=== PATIENT | female | born 1995 | race Caucasian/White ===

== ENCOUNTER 2023-05-30 07:07 | Outpatient (CLI) | payer BC, SELFPAY ==
--- NOTE | 2023-05-30 07:15 | CRLHL7_ITS ---
For Patients: As a result of the Cures Act, medical imaging exams and procedure reports are released immediately into your electronic medical record. You may view this report before your referring provider. If you have questions, please contact your health care provider. INDICATION: First trimester scan, establish dates. COMPARISON: None. TECHNIQUE: Real-time gutierrez-scale imaging of the pelvis was performed. FINDINGS: Sonographic imaging demonstrates a single living intrauterine gestation. The embryo demonstrates a regular cardiac rate measuring 180 beats per minute. The embryo`s crown-rump length measurement of 2.1 cm corresponds to a gestational age of 8 weeks 5 days with a sonographic due date of January 04, 2024. There is a normal-appearing yolk sac measuring up to 3.5 mm in diameter. There are no gross abnormalities noted within the embryo at this early state of development. The placenta has not yet developed. The gestational sac has a normal appearance and there is no evidence of a perigestational hemorrhage. The amount of fluid within the sac appears appropriate for gestational age. The cervix is closed. The myometrium appears normal. The ovaries are of normal size. The right ovary measures 2.6 x 1.2 x 2.1 cm. The left ovary measures 3.8 x 1.9 x 3.0 cm. Small corpus luteum cyst of on the left. There are no suspicious fluid collections noted in the cul-de-sac. IMPRESSION: Normal first trimester OB ultrasound exam. Gestational age calculated at 8 weeks 5 days with a sonographic due date of January 04, 2024. Dictated by Michael Taylor MD @ 05/30/2023 8:30:13 AM (Electronically Signed)
== END 2023-05-30 07:08 | disposition home or self-care (01) ==
PROVIDERS: Visit Provider Advanced Practice Midwife
DX: Z34.91 Encounter for supervision of normal pregnancy, unspecified, first trimester (principal); Z3A.08 8 weeks gestation of pregnancy
CPT/HCPCS: 76817; 86703; 86706; 86803; 86850; 86900; 86901; 87086; 87340

== ENCOUNTER 2023-05-30 09:20 | Outpatient (CLI) | payer BC, SELFPAY | END 2023-05-30 09:21 | disposition home or self-care (01) | LOC: NFLDREF 06-01 08:41 | PROVIDERS: Visit Provider Advanced Practice Midwife | DX: Z34.91 Encounter for supervision of normal pregnancy, unspecified, first trimester (principal); Z3A.08 8 weeks gestation of pregnancy | CPT/HCPCS: 86592; 86703; 86704; 86706; 86762; 86787; 86803; 86850; 86900; 86901; 87086; 87340 ==

== ENCOUNTER 2023-08-22 08:13 | Outpatient (CLI) | payer OTHER, SELFPAY ==
--- NOTE | 2023-08-22 08:15 | US_ITS ---
Patient: AVELINO SU Facility:?[facility] Patient ID:?[id number] Site Patient ID:?[id number]. Site :?[id number] Study:?US-OB Pelvis OB > 14wks-08/22/2023 10:17:04 AM Ordering Physician:Faith Bella Final Report: INDICATION: Evaluate anatomy. COMPARISON: 05/30/2023 TECHNIQUE: Real time gutierrez scale imaging of the fetus was performed as well as color Doppler analysis of the umbilical vessels. FINDINGS: Sonographic imaging demonstrates a single living intrauterine gestation. Fetus demonstrates a regular cardiac rate of 144 beats per minute. Fetus has a transverse position, head maternal right. The placenta lies posteriorly without evidence of placenta previa. Placental edge is 3.7 cm from the internal cervical os. Amniotic fluid volume appears normal. Single deepest vertical pocket: 3.2 cm. The cervix is closed and measures 5.4 cm in length. The composite ultrasound gestational age is calculated at 20 weeks 5 days with an estimated sonographic due date of 01/04/2024. The estimated weight is 373 grams which lies at the 45th %. The following biometric measurements were obtained: Biparietal diameter: 4.9 cm/20 weeks 5 days 51st% Head circumference: 18.1 cm/20 weeks 3 days 31st% Abdominal circumference: 15.5 cm/20 weeks 5 day 43rd% Femur length: 3.4 cm/20 weeks 6 days 44th% The HC/AC ratio measures: 1.16 range (1.06-1.25) On anatomic survey, there is a normal appearance of the cavum septi pellucidi, cisterna magna and cerebellum. Choroid plexus cysts measuring 1.2 cm and 0.9 cm. The nose, lips, and facial profile appear normal. The cervical, thoracic and lumbar spine are well visualized and appear normal. There is a normal four- chamber heart view and the left and right ventricular outflow tracts appear normal. The diaphragm and stomach appear normal. The kidneys and bladder also appear normal. There is a normal three-vessel cord and cord insertion site. The four extremities appear normal. IMPRESSION: Concordance of clinical and sonographic dating. Choroid plexus cysts. Remainder of the anatomic survey is normal. Level 2 ultrasound recommended. Dictated by Sadi Cevallos MD @ 08/22/2023 12:22:04 PM Signed by:?Sadi Cevallos MD @08/22/2023 12:22:04 PM (Electronic Signature)
== END 2023-08-22 08:14 | disposition home or self-care (01) ==
LOC: US 08:18
PROVIDERS: Visit Provider Obstetrics & Gynecology
DX: Z34.92 Encounter for supervision of normal pregnancy, unspecified, second trimester (principal); O35.03X0 Maternal care for (suspected) central nervous system malformation or damage in fetus, choroid plexus cysts, not applicable or unspecified; Z3A.20 20 weeks gestation of pregnancy
CPT/HCPCS: 76805

== ENCOUNTER 2023-10-17 08:50 | Outpatient (CLI) | payer OTHER, SELFPAY | END 2023-10-17 08:51 | disposition home or self-care (01) | LOC: NFLDREF 10-19 09:06 | PROVIDERS: Visit Provider Obstetrics & Gynecology | DX: Z34.03 Encounter for supervision of normal first pregnancy, third trimester (principal) | CPT/HCPCS: 86592 ==

== ENCOUNTER 2023-11-28 09:41 | Outpatient (CLI) | payer OTHER, SELFPAY | END 2023-11-28 09:42 | disposition home or self-care (01) | PROVIDERS: Visit Provider Obstetrics & Gynecology | DX: O16.3 Unspecified maternal hypertension, third trimester (principal); Z3A.34 34 weeks gestation of pregnancy | CPT/HCPCS: 82565; 82570; 84156; 84450; 84460; 84520 ==

== ENCOUNTER 2023-12-05 09:29 | Outpatient (CLI) | payer OTHER, SELFPAY ==
[2023-12-06 11:19] LABS: Strep B DNA Probe Negative (Negative)
[2023-12-06 11:20] LABS: Strep B Susceptibility Needed? No
== END 2023-12-05 09:30 | disposition home or self-care (01) ==
LOC: NFLDREF 09:29
PROVIDERS: Visit Provider Obstetrics & Gynecology
DX: Z34.93 Encounter for supervision of normal pregnancy, unspecified, third trimester (principal)
CPT/HCPCS: 87081; 87653

== ENCOUNTER 2024-01-10 16:15 | Inpatient (IN) | payer OTHER, SELFPAY ==
[2024-01-10 16:46] VITALS: BMI 33.3
[2024-01-10 16:50] VITALS: BP 144/88; PULSE 98
[2024-01-10 17:02] VITALS: BP 141/85; PULSE 103; TEMP 36.7
--- NOTE | 2024-01-10 18:21 | W.PM.LDBA ---
Subjective History of Present Illness Time Seen by Provider: 15:45 Date Seen: 01/10/24 Narrative: Patient is being admitted to Labor and Delivery for scheduled IOL. She is a 28 year old at 40.6 weeks gestation. Her full history and physical was dictated by myself on 12/12/23. Please see this for details. Upon arrival, her BPs were elevated [id number]. She rules in for at least gestational hypertension in given that she has had an elevated blood pressure at a previous clinic visit. Will send preeclampsia labs. Denies any persistent headache, vision changes, SOB, right upper quadrant/epigastric pain, or rapidly expanding edema. Active movement. Denies Ctx, LOF, vaginal bleeding or abnormal vaginal discharge. Specific Issues/Plans NATALIIA: 01/04/24 : Elliott Hough due PP. 1. Hx asthma. Inhaler only with exercise. 2. Anxiety. Not currently on medication. 3. Bilateral choroid plexus cysts on FAS (08/21) [x] NIPT low risk [x] s/p MFM visit and level 2 US, no further workup recommended 4. Elevated BP without HTN - elevated BP in clinic on 11/27, normal preE labs Flu vaccine:declines Covid Vaccine:declines TDAP: 10/31/23 OB - Problem Based A/P Additional Plan (1) Gestational hypertension: Status: Acute (2) Choroid plexus cyst of fetus: Problem details: Bilateral Status: Acute (3) : Status: Acute (4) Anxiety: Status: Acute (5) Asthma: Problem details: inhaler with exercise Status: Acute Plan Induction - SVE 150/-3, moderately soft, posterior - [place] Irregular contractions - IOL plan: Cook cath - 60cc/60cc. Placed at 1745. Patient tolerated will minimal discomfort. Low dose Pitocin at midnight - Continuous monitoring - Pain management plan: Undecided. r/o Pre-Eclampsia - Based on mild range in blood pressure. Pending protein creatinine ratio - BPs 144/88 and 141/85 - Symptoms: none - Magnesium: currently not indicated - IV antihypertensives: currently not indicated - PO antihypertensive: currently not indicated - Pre-eclampsia labs on 11/28/23: Hgb 11.5 Plt 222 Cr 0.6 Uric ALT 32 AST 19. P/C ratio 0.17 - Pending new pre-e labs Wellbeing Presentation cephalic NST: 130s bpm, moderate variability, positive acceleration, negative decelerations. Overall cat I. OB Exam Physical Exam Vital signs: Temp Pulse BP 98.1 F 103 H 141/85 H 01/10/24 17:02 01/10/24 17:02 01/10/24 17:02 Narrative: Physical exam: General: No acute distress Psych: Alert and oriented x3, full affect HEENT: Normocephalic, atraumatic Lungs: Unlabored breathing Neuro: No focal deficit. Mentating appropriately Pelvic exam: Dry perineum. 1/50/-3, moderately soft, posterior.
[2024-01-10 18:40] LABS: Basophils Absolute Auto 0.03 K/uL (0.00-0.30); Basophils Percent Auto 0.3 % (0.0-3.0); Eosinophils Absolute Auto 0.06 K/uL (0.00-0.50); Eosinophils Percent Auto 0.6 % (0.0-7.0); Hematocrit 34.9 % (33.0-51.0); Hemoglobin* 11.7 gm/dL (12.0-16.0); Immature Granulocytes Abs Auto 0.15 K/uL (0.00-0.30); Immature Granulocytes Pct Auto 1.4 %; Lymphocytes Percent Auto 12.7 % (20-44); Mean Corpuscular HGB Conc 34 gm/dL (32-36); Mean Corpuscular Hemoglobin 28 pg (26-34); Mean Corpuscular Volume 83 fL (80-100); Monocytes Percent Auto 8.1 % (0.0-11.0); Neutrophils Percent Auto 76.9 % (42.0-72.0); Platelet Count* 248 K/uL (140-440); RDW Coefficient of Variation % 13.8 % (11.5-15.5); Red Blood Count 4.19 m/uL (4.00-5.20); White Blood Count* 10.37 K/uL (4.50-11.00)
[2024-01-10 19:10] LABS: Aspartate Amino Transferase* 41 U/L (12-35); Creatinine* 0.6 mg/dL (0.5-1.5); Est. Creatinine Clearance* 143.28; Estimated Glomerular Filt Rate 124 ml/min
[2024-01-10 19:11] LABS: Alanine Aminotransferase* 17 U/L (4-35); Blood Urea Nitrogen* 8 mg/dL (5-24)
[2024-01-10 19:20] VITALS: RESP 18; TEMP 36.4
[2024-01-10 19:21] VITALS: BP 134/89; PULSE 76
[2024-01-10 19:53] LABS: Slide Review Reflex No
[2024-01-10 20:04] LABS: Total Protein Urine 7 mg/dL
[2024-01-10 20:05] LABS: Creatinine Urine 65.5 mg/dL; Protein Creatinine Ratio Urine 0.11 (0-0.19)
[2024-01-10 22:10] VITALS: BP 130/89; PULSE 83
[2024-01-11] VITALS (71 sets, daily range): BP systolic 102–177; BP diastolic 53–94; PULSE 65–130; RESP 16–22; TEMP 36.6–37.2; O2SAT 93–100
[2024-01-11] MEDS: LACTATED RINGERS 1000 ML 1,000 ML 125 ML IV ×3 (00:09→15:17)
[2024-01-11] MEDS: OXYTOCIN 30 unit/500 ML in NS 30 UNIT/500 ML BAG IVPB (00:10)
--- NOTE | 2024-01-11 07:41 | P.OBPN_ITS ---
Subjective Date Seen: 01/11/24 Narrative: The patient did well overnight, was able to sleep some through contractions while the Cook catheter was in place. Currently unaware of contractions. 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
--- NOTE | 2024-01-11 16:25 | P.OBPN_ITS ---
Subjective Time Seen by Provider: 15:50 Date Seen: 01/11/24 Narrative: Patient is still comfortable. Feeling mild/moderate contractions. 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 Continue pitocin infusion.
--- NOTE | 2024-01-11 18:04 | PM.OBPNL ---
Subjective Time Seen by Provider: 18:00 Date Seen: 01/11/24 Narrative: The patient is feeling increased pressure in the pelvis with contractions. Now using nitrous oxide for pain relief. Objective Vital Signs: Last Vital Signs Temp 98.1 F 01/11/24 17:34 Pulse 82 01/11/24 17:34 Resp 20 01/11/24 17:34 BP 124/66 01/11/24 17:34 Pelvic Exam Dilation (cm): 7 Effacement (%): 80 Station: -2 Contractions Monitor mode: External Contraction pattern: Regular Contraction intensity: Strong/Firm Pitocin Rate (mU/min): 13 Assessment Assessment: active labor Station: -2 (OT position) Status: Category ll Heart Rate Baseline: 130 Monitor Accelerations: Absent Monitor Decelerations: Early Plan Plan: Will continue maternal repositioning to affect rotation. Patient requests epidural.
[2024-01-11] MEDS: LIDOCAINE 2% (PF) 5 ML VIAL EPIDURAL (19:02)
[2024-01-11] MEDS: ROPIVACAINE 0.2% 100 ml 100 ML 12 MG EPIDURAL (19:04)
--- NOTE | 2024-01-11 19:14 | PM.ANBPRC ---
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 Feels a little more irritable but declines intervention at this time. NHI: 7 PHQ 9: 4 Seat Belt Use: Routinely Smoking: Denies past/present Alcohol/day: Denies while Caffeine: less than one per day Drug Use: Denies past/present Chicken Pox: immunized MRSA: Denies What is your current living situation?: I presently have a place to live Problems where you live: no known problems In the past 12 months, utilities in danger of being shut off: no In past 12 months, lack of transportation kept you from medical appts, meetings, work, or getting things needed for daily living: no In the past 12 mos, have been you worried that your food would run out before you had money to buy more?: never true In the past 12 mos, the food you bought just didn't last and you didn't have money to buy more?: never true Smoking Status: Never smoker How often does anyone, including family, friends and others, physically hurt you: never How often does anyone, including family, friends and others, insult or talk down to you: never How often does anyone, including family, friends and others, threaten you with harm: never How often does anyone, including family, friends and others, scream or curse at you: never Little interest or pleasure in doing things: not at all Feeling down, depressed, or hopeless: not at all Meds Home Medications and Allergies Home Medications ?Medication ?Instructions ?Recorded ?Confirmed ?Type docosahexaenoic acid 200 mg See Rx Instructions PO .COMPLEX 05/30/23 01/10/24 History capsule ( DHA) omeprazole 20 mg capsule,delayed 20 mg PO QDAY PRN 11/28/23 01/10/24 History release Allergies Allergy/AdvReac Type Severity Reaction Status Date / Time No Known Drug Allergies Allergy Verified 01/10/24 16:49 Results Labs Labs: Laboratory Results - last 24 hr 01/10/24 01/10/24 18:26 18:55 WBC 10.37 RBC 4.19 Hgb 11.7 L Hct 34.9 MCV 83 MCH 28 MCHC 34 RDW Coeff of Brenna 13.8 Plt Count 248 Neut % (Auto) 76.9 H Lymph % (Auto) 12.7 L Churchill % (Auto) 8.1 Eos % (Auto) 0.6 Baso % (Auto) 0.3 Neut # (Auto) 8.00 H Lymph # (Auto) 1.30 Churchill # (Auto) 0.80 Eos # (Auto) 0.06 Baso # (Auto) 0.03 Abs Immat Gran (auto) 0.15 Imm/Tot Granulo (auto) 1.4 BUN 8 Creatinine 0.6 Estimated Creat Clear 143.28 Estimated GFR 124 AST 41 H ALT 17 Urine Creatinine 65.5 Protein/Creatinin Ratio 0.11 Urine Total Protein 7 Blood Type AB Positive Antibody Screen NEGATIVE Vital Signs Vital Signs: Last Vital Signs Temp 98.1 F 01/11/24 17:34 Pulse 86 01/11/24 19:13 Resp 20 01/11/24 17:34 BP 141/75 H 01/11/24 19:13 Pulse Ox 98 01/11/24 19:11 Weight: 102.467 kg Height: 175.26 cm Anesthesia Procedures Epidural Insertion Patient Location: OB Start Time: 18:25 Stop Time: 19:25 Start Date: 01/11/24 Stop Date: 01/11/24 Reason for Block: procedure for pain Patient Position: sitting Performed By: Karie Bell Preanesthetic Checklist: IV checked, risks and benefits discussed, monitors and equipment checked, pre-op evaluation, timeout performed and anesthesia consent Prep: chlorhexidine gluconate Monitoring: blood pressure monitoring, continuous pulse oximetry and heart rate Approach: midline Vertebral Space: lumbar (1-5) Epidural Technique: PORTIA saline Needle Type: Tuohy needle Injection Technique: continuous catheter (continuous catheter) Needle gauge: 17 Needle Length (cm): 10 cm Needle Insertion Depth (cm): 8 Catheter Gauge: 19 Catheter Type: multi-orifice Catheter at skin depth (cm): 15 Test Dose Result: negative and lidocaine 1.5% with epinephrine 1 to 200,000
[2024-01-11 19:39] LABS: Hemoglobin* 11.3 gm/dL (12.0-16.0); Mean Corpuscular HGB Conc 34 gm/dL (32-36); Mean Corpuscular Hemoglobin 29 pg (26-34); Mean Corpuscular Volume 84 fL (80-100); Platelet Count* 224 K/uL (140-440); Red Blood Count 3.95 m/uL (4.00-5.20); White Blood Count* 13.87 K/uL (4.50-11.00)
[2024-01-11 19:44] LABS: Slide Review Reflex No
[2024-01-11 20:05] LABS: Alanine Aminotransferase* 17 U/L (4-35); Aspartate Amino Transferase* 34 U/L (12-35); Blood Urea Nitrogen* 6 mg/dL (5-24); Creatinine* 0.6 mg/dL (0.5-1.5); Est. Creatinine Clearance* 143.28; Estimated Glomerular Filt Rate 124 ml/min; Uric Acid* 3.9 mg/dL (2.2-8.4)
--- NOTE | 2024-01-11 20:19 | PM.OBPNL ---
Subjective Time Seen by Provider: 19:35 Date Seen: 01/11/24 Narrative: Patient comfortable with epidural. Objective Vital Signs: Last Vital Signs Temp 98.1 F 01/11/24 17:34 Pulse 82 01/11/24 20:19 Resp 20 01/11/24 17:34 BP 124/65 01/11/24 20:19 Pulse Ox 98 01/11/24 19:56 Pelvic Exam Dilation (cm): 7 Effacement (%): 90 Station: -1 Contractions Monitor mode: External Contraction pattern: Regular Contraction intensity: Strong/Firm Pitocin Rate (mU/min): 13 Assessment Station: -1 (OT position) Status: Category ll Heart Rate Baseline: 120 [place] Variability: Moderate (6-25) Monitor Accelerations: Absent Monitor Decelerations: None Plan Plan: IUPC and FSC placed. Cervical effacement and station change, dilation unchanged. FHR baseline appears to have changed following epidural placement. Still good variability and accels in response to scalp stimulation with exam. Continue to closely monitor. Monitor mvus and increase pitocin infusion as needed.
--- NOTE | 2024-01-11 21:45 | PM.OBPNL ---
Subjective Time Seen by Provider: 21:45 Date Seen: 01/11/24 Narrative: Patient still comfortable, feeling some pressure with contractions. Objective Vital Signs: Last Vital Signs Temp 98.1 F 01/11/24 17:34 Pulse 99 01/11/24 21:36 Resp 20 01/11/24 17:34 BP 157/94 H 01/11/24 21:36 Pulse Ox 98 01/11/24 19:56 Pelvic Exam Dilation (cm): 8 Effacement (%): 90 Station: 0 Contractions Monitor mode: External Contraction pattern: Regular Contraction intensity: Strong/Firm Pitocin Rate (mU/min): 15 Assessment Station: 0 Amniotic Membrane Status: SROM Status: Category ll Heart Rate Baseline: 120 Monitor Accelerations: Absent Monitor Decelerations: Variable Plan Plan: Contractions not consistently adequate. Continue slow increase in pitocin infusion as tolerated by FHTs. Position change.
[2024-01-11] MEDS: ONDANSETRON 2 MG/ML inj 4 MG IV (22:31)
[2024-01-11] MEDS: LACTATED RINGERS 1000 ML 1,000 ML 1200 ML IV (23:36)
[2024-01-12] VITALS (32 sets, daily range): BP systolic 110–146; BP diastolic 57–84; PULSE 61–120; RESP 12–18; TEMP 36.4–37.1; O2SAT 95–99
[2024-01-12] MEDS: ACETAMINOPHEN 500 MG TABLET 1000 MG PO ×2 (01:15→06:08)
[2024-01-12] MEDS: ROPIVACAINE 0.2% 100 ml 100 ML 12 MG EPIDURAL (02:26)
[2024-01-12] MEDS: LIDOCAINE 1 % PF 30 ML INJECTION (03:06)
--- NOTE | 2024-01-12 03:26 | W.PM.OBVAGDE ---
OB Procedure Vag Delivery Mother Details Mother Details: The patient is a 28 year-old, 1, Para 0, admitted on 01/10/24 at 40 6/7 weeks gestation for cervical ripening and induction of labor secondary to postdates gestation. Cervix 1 cm dilated at the time of admission. Cook catheter placed overnight. Pitocin infusion initiated prior to catheter removal, and continued on 01/11/2024. : 1 Para: 0 Weeks Gestation: 41.1 Admission Date: 01/10/24 Additional Details Amniotic Membrane Status: intact Amniotic Membrane Rupture Date: 01/11/24 Amniotic Membrane Rupture Time: 15:50 Amniotic Membrane Fluid Description: Clear Analgesia/Anesthesia Type: Epidural and Nitrous Oxide Waterbirth: No Pitcoin: Yes Intrapartal Events: Labor Induction Induction Method: Intracervical balloon catheter and per pitocin protocol Delivery augmentation: rupture of membranes Labor Onset: 15:50 Complete: 00:46 Pushin:52 Heart: heart tones during second stage were 125 bpm baseline with variable decelerations. Intermittent irregular heart beat audible during active labor, manifested as skipped beats. Delivery Details Delivery Date: 01/12/24 Delivery Time: 03:00 Route of delivery: Gender: Male Viability: Alive; Heart Rate Present Position at Delivery: OA (with left nuchal hand and loose nuchal cord x1) Delivery Details: Delivered over intact perineum via spontaneous vaginal delivery. was placed on maternal abdomen.? Cord was clamped and cut after a 30-60 second delay. Nose and mouth were bulb suctioned.? Infant weight pending. Mother did have some intermittent high BPs during labor after epidural placed, none which needed treatment. 1 Minute Interval Total Score: 8 5 Minute Interval Total Score: 9 Additional Details Shoulder Dystocia: No Placenta Delivery Time: 03:04 Placental Delivery Description: Spontaneous Delivery repair: Vicryl (2-0 to reapproximate bulbocavernosus muscles over the intact sphincter) and Chromic Procedure Done: Global Blood Loss: 150 Laceration: Vaginal - 2nd Degree Episiotomy Description: None Blood Loss Measurement Type: QBL Bakri Used: No Sponge/Need Count Correct: Yes Cord Vessel Description: 3 Vessels, Nuchal Cord and Reduced Event Summary Status: Mother and were stable after delivery. Placenta to pathology due to high BPs during labor. Disposition: floor
--- NOTE | 2024-01-12 07:58 | PM.ANPOST ---
Post Anesthesia Note Post Anesthesia Note Patient seen: Inpatient Respiratory Status: adequate Cardiovascular Status: adequate Mental Status: baseline Pain: adequate Temp: baseline Anesthetic awareness: N/A Complications: none Follow care: none
[2024-01-12] MEDS: DOCUSATE SODIUM 100 MG CAPSULE PO ×2 (08:30→20:39)
[2024-01-12] MEDS: IBUPROFEN 600 MG TABLET PO ×3 (08:30→20:39)
--- NOTE | 2024-01-12 18:08 | PC.NURSE ---
Nursing Care Hours: [id number] Pt this shift pleasant, independent in cares. Pain controlled per eMAR. Declined ice. VSS. Engaged with infant. No c/o headache, SOB, or chest pain. Fundus at midline and no discharge with massaged.
[2024-01-12] MEDS: MAGNESIUM HYDROXIDE 30 ML ORAL.SUSP PO (20:39)
[2024-01-13] VITALS (7 sets, daily range): BP systolic 112–143; BP diastolic 74–92; PULSE 72–99; RESP 16–18; TEMP 36.4–36.8; O2SAT 97–98
[2024-01-13 00:59] LABS: Rapid Plasma Reagin (RPR) Non Reactive (Non Reactive)
[2024-01-13] MEDS: IBUPROFEN 600 MG TABLET PO ×4 (02:54→23:58)
[2024-01-13 06:11] LABS: Hemoglobin* 9.4 gm/dL (12.0-16.0)
--- NOTE | 2024-01-13 08:43 | P.DS_ITS ---
DS: Providers Provider Date of admission: 01/10/24 16:15 Primary care physician: Not a Local Provider Admitting Clinician: Rsoalie Garcia MD Attending Physician on discharge: Suzie Omer MD DS: Diagnosis Discharge Diagnosis (1) Lactating mother: Status: Acute (2) care and examination immediately after delivery: Status: Acute (3) Gestational hypertension: Status: Acute Exam Const: Vital Signs, click to edit/add: Vital Signs - 24 hr 01/12/24 09:21 01/12/24 13:45 01/12/24 16:44 Temperature 98 F 98.1 F 97.7 F Pulse Rate [Pulse Oximeter] 72 61 85 Respiratory Rate 16 16 18 Blood Pressure [Ri ght Arm] 111/69 110/75 126/82 Pulse Oximetry 97 97 95 Oxygen Delivery Me thod Room Air Room Air 01/12/24 20:02 01/13/24 00:04 01/13/24 04:07 Temperature 97.6 F 97.5 F L 98.2 F Pulse Rate [Pulse Oximeter] 94 99 82 Respiratory Rate 12 16 16 Blood Pressure [Ri ght Arm] 117/76 133/90 H 121/74 Pulse Oximetry 95 Oxygen Delivery Me thod Room Air OB - DS: Summary Hospital Course Hospital Course: Tamika is a 28 y.o. G 1 P 1 who was admitted to [facility] for induction of labor for post dates. She developed GHTN while in labor but labs have been WNL.?She had a NVD that was uncomplicated. The patient feels well. ?The pain is well controlled with current medications. ?She has no new complaints. ?She is breast feeding and reports things are going well. the patient has done well.? Vitals have been stable.? She has remained afebrile.? Has a good appetite, is tolerating a general diet. ?She is voiding without difficulty.? She is passing gas and has not had a bowel movement.? She is ambulating and denies any dizziness.? Has small amount of rubra lochia. Patient strongly desires discharge today. We discussed recommendation of staying the 2 days for BP monitoring post delivery with diagnosis of GHTN due to increased risk of elevated blood pressure with peak days 3-5 after discharge. Problems: GHTN plan: Initial plan was discharge , may see if needed Hgb 9.4. Iron supplement ordered orally every other day GHTN diagnosed by elevated BP greater than 4 hours apart Labs WNL or stable with trending Discharge home with BP cuff if does not already have one Follow up in 3-5 days Call for signs/symptoms of preeclampsia Peripartum Data delivery method: Vaginal [place] Infant Gender: Male Time Spent with Patient Time attestation: Total time spent providing and/or coordinating discharge services: Discharge Plan Discharge Disposition: Home, Self-Care Date of Admission: 01/10/24 16:15 Attending Provider on Discharge: Kaylie Guy Primary Care Provider: Provider,Not a Local Condition: Stable Anticipated Discharge Date/Time: 01/13/24 16:00 Discharge Medications: New docusate sodium 100 mg Capsule 100 mg PO BID Qty: 90 0RF ferrous sulfate 325 mg (65 mg iron) Tablet 325 mg PO Q48H Qty: 90 0RF ibuprofen 600 mg Tablet 600 mg PO Q6H PRNQty: 60 0RF acetaminophen 500 mg Tablet 1,000 mg PO Q6H PRNQty: 0 0RF Continued DHA 200 mg capsule See Rx Instructions PO .COMPLEX Rx Instructions: 1 cap orally; daily albuterol sulfate 90 mcg/actuation aerosol powdr breath activated 2 inh inhalation Q4H PRN (Reason: shortness of breath or wheezing) Qty: 1 2RF omeprazole 20 mg capsule,delayed release(DR/EC) 20 mg PO QDAY PRN Patient Comments: taken in the last week Patient Education: OB Over the Counter Medication Information, OB Vaginal/Breast Feeding Additional Instructions: Discharge instructions were reviewed with the patient including signs and symptoms of infection and home going medications Nothing vaginally for 6 weeks: no tampons or intercourse Do not drive while taking narcotic pain medication(s) Off Work or School for 8 weeks Follow [facility] for a BP check in 3-5 days Call with BP greater than or equal to 160/110 * Severe headache that doesn't improve after taking medications * Changes in vision, including temporary loss of vision, blurred vision, and/or light sensitivity * Upper abdominal pain (usually under ribs on the right side) Call if BP is elevated more than 140/90 on more than two separate occasions 2-week visit: discuss infant feeding concerns, review control options and screen for anxiety/depression. 6-week visit for an annual exam. consultation services are available to all mothers and babies for the first year after delivery.? To make an appointment, please call [phone]. Activity Level: Activity as Tolerated Discharge Diet: Regular Follow Up Appointments: [facility] [Provider Group] Forms: [employer]th Info Instructions
[2024-01-13] MEDS: DOCUSATE SODIUM 100 MG CAPSULE PO ×2 (09:27→23:58)
[2024-01-13] MEDS: FERROUS SULFATE 325 MG TABLET PO (09:27)
[2024-01-13 17:16] LABS: Hematocrit 32.2 % (33.0-51.0); Hemoglobin* 10.5 gm/dL (12.0-16.0); Mean Corpuscular HGB Conc 33 gm/dL (32-36); Mean Corpuscular Hemoglobin 28 pg (26-34); Mean Corpuscular Volume 86 fL (80-100); Platelet Count* 215 K/uL (140-440); Red Blood Count 3.74 m/uL (4.00-5.20); White Blood Count* 10.66 K/uL (4.50-11.00)
[2024-01-13 17:19] LABS: Slide Review Reflex No
[2024-01-13] MEDS: NIFEdipine 30 MG TAB.ER.24 PO (17:23)
[2024-01-13 17:37] LABS: Alanine Aminotransferase* 17 U/L (4-35); Aspartate Amino Transferase* 32 U/L (12-35); Blood Urea Nitrogen* 8 mg/dL (5-24); Creatinine* 0.6 mg/dL (0.5-1.5); Est. Creatinine Clearance* 143.28; Estimated Glomerular Filt Rate 124 ml/min
[2024-01-13 19:22] LABS: Creatinine Urine 14.4 mg/dL; Protein Creatinine Ratio Urine 0.97 (0-0.19); Total Protein Urine 14 mg/dL
--- NOTE | 2024-01-13 22:29 | P.OBPN_ITS ---
OB - PN:Subj Subjective Time Seen by Provider: 08:15 Date Seen: 01/13/24 Narrative: Tamika is a 28 y.o. G 1 P 1 who was admitted to [facility] for induction of labor for post dates. She developed GHTN while in labor but labs have been WNL.?She had a NVD that was uncomplicated. The patient feels well. ?The pain is well controlled with current medications. ?She has no new complaints. ?She is breast feeding and reports things are going well. the patient has done well.? Vitals have been stable.? She has remained afebrile.? Has a good appetite, is tolerating a general diet. ?She is voiding without difficulty.? She is passing gas and has not had a bowel movement.? She is ambulating and denies any dizziness.? Has small amount of rubra lochia. Patient strongly desires discharge today. We discussed recommendation of staying the 2 days for BP monitoring post delivery with diagnosis of GHTN due to increased risk of elevated blood pressure with peak days 3-5 after discharge. Update at 1600: Patient BP was was higher normotensive then mild range. Recomm ended patient stay for the night, she is very tearfuld but agrees with plan. Pre-e labs repeated. P/c ratio accidently ordered, likely inaccurate due to bleeding. Labs otherwise stable. Discussed plan with Dr. Alcantara who agrees with starting medications. Nifedipine ordered. OB - PN: Obj Exam Physical Exam: Vital signs: Temp Pulse Resp BP Pulse Ox O2 Del Method 98.3 F 83 18 132/85 97 Room Air 01/13/24 20:30 01/13/24 20:30 01/13/24 20:30 01/13/24 20:30 01/13/24 20:30 01/13/24 20:30 OB - PN: Obj Data Labs Labs: Laboratory Results - last 24 hr 01/10/24 01/13/24 01/13/24 18:26 05:55 17:12 WBC 10.66 RBC 3.74 L Hgb 9.4 L 10.5 L Hct 32.2 L MCV 86 MCH 28 MCHC 33 Plt Count 215 BUN 8 Creatinine 0.6 Estimated Creat Clear 143.28 Estimated GFR 124 AST 32 ALT 17 Urine Creatinine Protein/Creatinin Ratio Urine Total Protein RPR Screen Non Reactive 01/13/24 19:00 WBC RBC Hgb Hct MCV MCH MCHC Plt Count BUN Creatinine Estimated Creat Clear Estimated GFR AST ALT Urine Creatinine 14.4 Protein/Creatinin Ratio 0.97 H Urine Total Protein 14 RPR Screen OB - PN: A/P Delivery Assessment and Plan (1) care and examination immediately after delivery: Status: Acute (2) Lactating mother: Status: Acute (3) Gestational hypertension: Status: Acute Plan day: 1 Plan: routine care Comments: Problems: GHTN plan: Initial plan was discharge but due to elevated BP throughout the day was recommended to stay overnight. , may see if needed Hgb 9.4. Iron supplement ordered orally every other day GHTN diagnosed by elevated BP greater than 4 hours apart
[2024-01-14 05:13] VITALS: BP 123/75; PULSE 68; RESP 18; TEMP 36.8; O2SAT 97
[2024-01-14 08:15] VITALS: BP 122/75; PULSE 71; RESP 18; TEMP 36.7
--- NOTE | 2024-01-14 08:53 | P.DS_ITS ---
DS: Providers Provider Time Seen by Provider: 08:40 Date Seen: 01/14/24 Date of admission: 01/10/24 16:15 Primary care physician: Not a Local Provider Admitting Clinician: Rosalie Garcia MD Attending Physician on discharge: Suzie Omer MD Date of Discharge: 01/14/24 DS: Diagnosis Discharge Diagnosis (1) care and examination immediately after delivery: Status: Acute (2) Lactating mother: Status: Acute (3) Gestational hypertension: Status: Acute Exam Const: Vital Signs, click to edit/add: Vital Signs - 24 hr 01/13/24 09:01 01/13/24 13:10 01/13/24 16:36 Temperature 97.8 F 98.1 F 98.3 F Pulse Rate [Pulse Oximeter] 86 72 75 Respiratory Rate 16 16 18 Blood Pressure [Le ft Arm] 130/87 143/88 H Blood Pressure [Ri ght Arm] 132/92 H Pulse Oximetry 97 97 98 Oxygen Delivery Me thod Room Air Room Air Room Air 01/13/24 20:30 01/13/24 23:49 01/14/24 05:13 Temperature 98.3 F 98.2 F 98.3 F Pulse Rate [Pulse Oximeter] 83 77 68 Respiratory Rate 18 18 18 Blood Pressure [Le ft Arm] 132/85 112/74 123/75 Blood Pressure [Ri ght Arm] Pulse Oximetry 97 97 97 Oxygen Delivery Me thod Room Air Room Air Room Air 01/14/24 08:15 Temperature 98.1 F Pulse Rate [Pulse Oximeter] 71 Respiratory Rate 18 Blood Pressure [Le ft Arm] 122/75 Blood Pressure [Ri ght Arm] Pulse Oximetry Oxygen Delivery Me thod Room Air Documenting provider has reviewed patient's vital signs: yes Common normals: no apparent distress and oriented x3 General appearance: cooperative and comfortable HENMT: Common normals: normocephalic Head and scalp: normocephalic Lymph: Lymphatic: no lymphadenopathy noted Resp: Common normals: normal respiratory effort Cardio: Common normals: regular rate and regular rhythm Rate: regular rate Rhythm: regular rhythm GI: Common normals: soft to palpation and non-tender Inspection: normal to inspection Palpation: soft Extremity: Common normals: normal to inspection and no pedal edema Neuro: Common normals: oriented x3 Psych: Common normals: affect normal OB - DS: Summary Hospital Course Hospital Course: The patient is a 28 year old G 1 now P 1001 that was admitted to the Center on 01/10/24 for induction of labor secondary to postdates gestation at 40 6/7 weeks. Cervical ripening was done with a intracervical Cook catheter, and induction continued with IV pitocin and amniotomy. She had an uncomplicated vaginal delivery. She delivered a1 viable male . She is breast feeding. the patient has done well. Peripartum Data delivery method: Vaginal Laceration description: Vaginal - 2nd Degree Episiotomy description: None complications: other (Hypertension, not severe) [place] Infant Gender: Male Infant Discharge Plan: Home Status at Discharge Functional status at discharge: independent ambulation Overall status at discharge: patient is back to baseline Time Spent with Patient Time attestation: Total time spent providing and/or coordinating discharge services: Time spent: Less than 30 minutes Discharge Plan Discharge Disposition: Home, Self-Care Date of Admission: 01/10/24 16:15 Attending Provider on Discharge: Suzie Omer Primary Care Provider: Provider,Not a Local Condition: Stable Anticipated Discharge Date/Time: 01/13/24 16:00 Discharge Medications: New acetaminophen 500 mg Tablet 1,000 mg PO Q6H PRNQty: 0 0RF docusate sodium 100 mg Capsule 100 mg PO BID Qty: 90 0RF ferrous sulfate 325 mg (65 mg iron) Tablet 325 mg PO Q48H Qty: 90 0RF ibuprofen 600 mg Tablet 600 mg PO Q6H PRNQty: 60 0RF Continued DHA 200 mg capsule See Rx Instructions PO .COMPLEX Rx Instructions: 1 cap orally; daily albuterol sulfate 90 mcg/actuation aerosol powdr breath activated 2 inh inhalation Q4H PRN (Reason: shortness of breath or wheezing) Qty: 1 2RF omeprazole 20 mg capsule,delayed release(DR/EC) 20 mg PO QDAY PRN Patient Comments: taken in the last week Discharge Orders: Discharge Order (Routine); Ordered 01/14/24 Ordered By: Suzie Omer Patient Education: OB Over the Counter Medication Information, OB Vaginal/Breast Feeding Additional Instructions: Discharge instructions were reviewed with the patient including signs and symptoms of infection and home going medications Nothing vaginally for 6 weeks: no tampons or intercourse Do not drive while taking narcotic pain medication(s) Off Work or School for 8 weeks [facility] for a BP check in 3-5 days Call with BP greater than or equal to 160/110 * Severe headache that doesn't improve after taking medications * Changes in vision, including temporary loss of vision, blurred vision, and/or light sensitivity * Upper abdominal pain (usually under ribs on the right side) Call if BP is elevated more than 140/90 on more than two separate occasions 2-week visit: discuss infant feeding concerns, review control options and screen for anxiety/depression. 6-week visit for an annual exam. consultation services are available to all mothers and babies for the first year after delivery.? To make an appointment, please call [phone]. Activity Level: Activity as Tolerated Discharge Diet: Regular Follow Up Appointments: [facility] [Provider Group] Forms: [employer] Info Instructions DS:Data Additional Comments Additional comments: Hgb 10.5
[2024-01-14] MEDS: NIFEdipine 30 MG TAB.ER.24 PO (09:07)
[2024-01-14] MEDS: DOCUSATE SODIUM 100 MG CAPSULE PO (09:07)
[2024-01-14] MEDS: IBUPROFEN 600 MG TABLET PO (09:07)
== END 2024-01-14 11:02 | disposition home or self-care (01) | DRG 807 ==
PROVIDERS: Advanced Practice Midwife; Admitting Provider Obstetrics & Gynecology; Visit Provider Obstetrics & Gynecology
DX: O48.0 Post-term pregnancy (principal); Z37.0 Single live birth; O13.4 Gestational [pregnancy-induced] hypertension without significant proteinuria, complicating childbirth; O70.1 Second degree perineal laceration during delivery; J45.909 Unspecified asthma, uncomplicated; O99.344 Other mental disorders complicating childbirth; F41.9 Anxiety disorder, unspecified; O35.8XX0 Maternal care for other (suspected) fetal abnormality and damage, not applicable or unspecified; Z3A.40 40 weeks gestation of pregnancy
CPT/HCPCS: 01967; 36415; 59200; 82565; 82570; 84156; 84450; 84460; 84520; 84550; 85018; 85025; 85027; 86592; 86850; 86900; 86901; 88307; A9270; J2001; J2371; J2405; J2795; J7120

== ENCOUNTER 2024-01-16 15:01 | Outpatient (CLI) | payer OTHER, SELFPAY ==
--- NOTE | 2024-01-16 16:20 | W.PM.LAC.MC ---
Consult Note - Mom Date of Visit Date of visit: 01/16/24 management consultant: Ana Rosa Cornelius Visit Code: Visit Patient's Information Phone number: [phone] : 1 Para: 1 Allergies No Known Drug Allergies Allergy (Verified 01/10/24 16:49) Delivery Information Delivery type: Vaginal Weeks Gestation: 41+1 Gestational Age: AGA Weight: 3.04 kg Discharge Weight: 3.036 kg Baby's Information Baby's Age at Visit: 4 days Baby's Provider or Clinic: [facility], Dr. Velazquez Jaundice: No Reason for Consult Reason for Consult: baby stopped latching when mom's milk came in Past Experience Past Experience: No Current Frequency of Day Feedings: every 3 hours, needing to wake him for feedings Frequency of Night Feedings: same Both Breasts: Yes (sometimes) Suck: had been latching well, strong when he does Latch: good Length of Time: 5-10 min, if he latches Goals: 1 year or more Pumping Pumping: Yes Quantity Pumped: 4 oz Supplementing EMB Supplement: Yes (giving EBM if he won't latch, takes 1-1.5 oz) Formula Supplement: No Baby Elimination Number of Wet Diapers a Day: 4 or more Number of BM a Day: 4, yellow/green, seedy Breast/Nipple Condition Engorgement: No Maternal Nipple Condition - Left: Common Nipple Maternal Nipple Condition - Right: Common Nipple Sore Nipples: No Interventions for Sore Nipples: Other (silverettes) Onsite Pre-Feed weight: 3.168 kg Post-Feed weight: 3.196 kg Milk Transferred (mL): 28 Pre-Nursing Left Nipple: Within Normal Limits Pre-Nursing Right Nipple: Within Normal Limits Post-Nursing Left Nipple: Within Normal Limits Post-Nursing Right Nipple: Within Normal Limits Assessments/Interventions Assessments/Interventions: has been 2 hours since baby ate, mom not sure if he'll nurse or not Baby stopped latching well Tuesday evening, milk came in Tuesday afternoon Have given some bottles to be sure he's getting what he needs for growth Worked with mom to latch baby using a variety of positions, he will go to the breast, look like he's latching, and then push off and cry. Might give a few sucks but not really latch well. Tried a nipple shield without success with the same. Talked with mom about: 1) Feeding the baby, offer every 2-3 hours; watch for early feeding cues. If he won't nurse, mom to pump and bottle. Start with 1 oz, offer more in 1/2 oz increments until satiated 2) Protect her milk supply - pump every feeding. No need to pump to empty as she has a large m milk supply right now. Pump to get what he needs, plus more if mom needs to be comfortable. 3) Discussed skin to skin to keep him close and watch for the early feeding cues. During our conversation, the nipple shield on mom filled up with milk after about 20 minutes of talking through options. She slid baby over to shield and coaxed him to the breast. He latched on, drank what was in the shield, plus began drinking longer and audible swallows present. He nursed for about 10 minutes and transferred 28 ml at the breast. Discussed with mom the above plan; try latching him without shield, if he won't nurse, then try shield. If he still won't nurse she can either pump and bottle and try again next time. She can also try using a syringe with feeding tube behind the nipple shield to coax him into latching. Baby has clinic appt tomorrow for f/u. Mom will call here with questions/concerns. Time spent reviewing notes for mom and hospital course as well as face to face time: 75 minutes. Meds Home Medications and Allergies Home Medications ?Medication ?Instructions ?Recorded ?Confirmed ?Type docosahexaenoic acid 200 mg See Rx Instructions PO .COMPLEX 05/30/23 01/10/24 History capsule ( DHA) omeprazole 20 mg capsule,delayed 20 mg PO QDAY PRN 11/28/23 01/10/24 History release Allergies Allergy/AdvReac Type Severity Reaction Status Date / Time No Known Drug Allergies Allergy Verified 01/10/24 16:49
== END 2024-01-16 15:02 | disposition home or self-care (01) ==
LOC: OB LAC 15:01
PROVIDERS: Visit Provider Obstetrics & Gynecology
DX: Z39.1 Encounter for care and examination of lactating mother (principal)
CPT/HCPCS: G0463

== ENCOUNTER 2024-02-24 11:27 | Outpatient (CLI) | payer OTHER, SELFPAY | END 2024-02-24 11:28 | disposition home or self-care (01) | LOC: NFLDREF 11:28 | PROVIDERS: Visit Provider Registered Nurse | DX: E04.9 Nontoxic goiter, unspecified (principal); Z11.51 Encounter for screening for human papillomavirus (HPV) | CPT/HCPCS: 84443; 87624 ==

== ENCOUNTER 2024-03-15 13:24 | Outpatient (CLI) | payer OTHER, SELFPAY ==
--- NOTE | 2024-03-15 13:45 | CRLHL7_ITS ---
For Patients: As a result of the Cures Act, medical imaging exams and procedure reports are released immediately into your electronic medical record. You may view this report before your referring provider. If you have questions, please contact your health care provider. THYROID ULTRASOUND 03/15/2024 CLINICAL HISTORY: Nontoxic goiter. FINDINGS: The right thyroid lobe measures 5.2 x 1.4 x 2.5 cm. The left thyroid lobe measures 5.5 x 1.5 x 1.8 cm. No nodules are seen. IMPRESSION: No thyroid nodules visualized. Normal appearance of the thyroid gland. Emely Boland M.D. Diagnostic/Breast Radiologist [email or web address] Transcribed: 9:45 am DW/Dictated by: Emely Boland MD @ 03/18/2024 6:08:00 PM (Electronically Signed)
== END 2024-03-15 13:25 | disposition home or self-care (01) ==
LOC: US 13:25
PROVIDERS: Visit Provider Registered Nurse
DX: E04.9 Nontoxic goiter, unspecified (principal)
CPT/HCPCS: 76536

== ENCOUNTER 2025-03-19 14:44 | Outpatient (CLI) | payer OTHER, SELFPAY ==
--- NOTE | 2025-03-19 14:45 | CRLHL7_ITS ---
For Patients: As a result of the Century Cures Act, medical imaging exams and procedure reports are released immediately into your electronic medical record. You may view this report before your referring provider. If you have questions, please contact your health care provider. OB ULTRASOUND INDICATION: Dating and viability. TECHNIQUE: Real time grayscale imaging of the fetus was performed. Transvaginal. Transvaginal imaging performed to better demonstrate the endometrium and ovaries. LMP: 01/19/2025. NATALIIA by LMP: 10/26/2025. GA: 8 w, 3 d. Previous US: No. CRL: 1.3 cm. 7 w 3 d. NATALIIA: 11/02/2025. FHR: 149 BPM. Gestational sac: 1.1 cm. Small? Yolk sac: 1.2 mm. Questionable. Right ovary: 3.5 x 2.8 x 2.2 cm. CL. Left ovary: 3.6 x 1.8 x 2.2 cm. IMPRESSION: 1. Single living intrauterine measures 7 weeks 3 days with sonographic due date 11/02/2025. 2. Gestational sac measures 1.1 cm, 5 weeks 6 days. Follow-up in two weeks recommended regarding the discrepancy between the gestational sac size and the pole. 3. Corpus luteal cyst right ovary. 4. Subchorionic hemorrhage measures 2.1 x 0.5 x 0.9 cm. Sadi Cevallos M.D. Diagnostic Radiologist [email or web address] LISETTE/hilda stevens/Dictated by: Sadi Cevallos MD @ 03/19/2025 4:13:00 PM (Electronically Signed)
== END 2025-03-19 14:45 | disposition home or self-care (01) ==
LOC: US 14:45
PROVIDERS: Visit Provider Registered Nurse
DX: O34.81 Maternal care for other abnormalities of pelvic organs, first trimester (principal); N83.11 Corpus luteum cyst of right ovary; O20.9 Hemorrhage in early pregnancy, unspecified; Z3A.01 Less than 8 weeks gestation of pregnancy
CPT/HCPCS: 76817; 82565; 82570; 83021; 84156; 84450; 84460; 84520; 86703; 86803; 86850; 87086; 87340; 87491; 87591

== ENCOUNTER 2025-03-19 16:10 | Outpatient (CLI) | payer OTHER, SELFPAY ==
[2025-03-19 21:55] LABS: Chlamydia DNA Amplified* NOT DETECTED (No Detected); GC DNA Amplified* NOT DETECTED (No Detected)
== END 2025-03-19 16:11 | disposition home or self-care (01) ==
PROVIDERS: Visit Provider Registered Nurse
DX: Z34.91 Encounter for supervision of normal pregnancy, unspecified, first trimester (principal)
CPT/HCPCS: 82565; 82570; 83020; 83021; 84156; 84450; 84460; 84520; 85660; 86592; 86703; 86704; 86762; 86787; 86803; 86850; 87086; 87340; 87491; 87591

== ENCOUNTER 2025-03-24 20:02 | Emergency (ER) | payer OTHER, SELFPAY ==
[2025-03-24] VITALS (7 sets, daily range): BP systolic 125–145; BP diastolic 76–81; PULSE 67–86; RESP 18; TEMP 36.2; O2SAT 96–99; BMI 32.9
--- OUTSIDE RECORDS SUMMARY | 2025-03-24 20:04 | XMS_ITS | Clinical Summary ---
Author Organization [place] Address [address] [place] [address] Care Team Providers Care Cosmetic Dentist Name Role Phone Unavailable Primary Care Provider Unavailabl e Social History Tobacco Use Types Packs/Day Years Used Date Smoking Tobacco: Never Assessed Adolescent Education Answer Date Record ed Getting School Help Needed Not on file 03/05 Comments No Sex and Gender Information Value Date Recorded Sex Assigned at Not on file Legal Sex Female 8:54 AM [employer] Gender Identity Not on file Sexual Orientation Not on file Last Filed Vital Signs Vital Sign Reading Time Taken Comments Blood Pressure 129/88 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 Pulse 77 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 Temperature 37 C (98.6 F) 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 Respiratory Rate - - Oxygen Saturation - - Inhaled Oxygen Concentration - - Weight 73.9 kg (163 lb) 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 Height 172.7 cm (5' 8) 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 Body Mass Index 24.78 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 Plan of Treatment Health Maintenance Due Date Last Done Comments ADVANCE CARE PLANNING 1993 ANNUAL REVIEW OF HM ORDERS 1993 YEARLY PREVENTIVE VISIT 1996 HIV SCREENING 2008 HEPATITIS C SCREENING 2011 PAP 2014 PHQ-2 (once per calendar year) 2024 COVID-19 VACCINE ( - season) 2025 INFLUENZA VACCINE (#1) 2025 7, 04/15/2010, 04/16/2009, Additional history exists DTAP/TDAP/TD VACCINE (10 - Td or Tdap) 04/25/2028 04/25/2018, 01/31/2009, 03/18/2005, Additional history exists ZOSTER VACCINE (1 of 2) 2043 HEPATITIS B VACCINE Completed 1993, 1993, 1993, Additional history exists HPV VACCINE (No Doses Required) Completed MENINGITIS VACCINE Aged Out No longer eligible based on patient's age to complete this topic PNEUMOCOCCAL VACCINE: PEDIATRICS (0 to 5 YEARS) AND AT-RISK PATIENTS (6 to 49 YEARS) Aged Out No longer eligible based on patient's age to complete this topic Insurance [employer]
--- NOTE | 2025-03-24 20:26 | ED_ITS ---
HPI - General Adult General Chief complaint: Vaginal Bleeding Stated complaint: Dizzy, Spotting Time Seen by Provider: 03/24/25 20:18 History of Present Illness HPI narrative: pt reports increased vaginal bleeding and light headedness. started 1 week, increased today to much more. Pt reports not going through any pads. Placed one pad 1 hour ago, thinks the pad might be full. Pt reports being , 9 weeks. care here at [facility]. 30-year-old woman presenting to the emergency department with concern of increasing vaginal bleeding in early . Has been spotting over the last week. Had more upon using the bathroom this evening. Still feels some nausea. Is not having much in the way of pain or cramping. Became particularly concerned when started to have this fuzzy feeling in her head; some lightheadedness/dizziness. No shortness of breath. Notes from 03/19 office visit FIRST OB VISIT Patient is a who presents today with her , Elliott for her first OB visit. The was unplanned. There feeling fine about the . Last menstrual period was 8-9, certain date. Today's ultrasound shows crown-rump length of 1.3 cm. Dating is off by 7 days. heart rate 149 beats per minute. Preliminary report notes that gestational sac is 1.1 cm, small. Yolk sac 1.2 mm, questionable. Subchorionic hemorrhage measuring 2.1 x 0.5 x 0.9 cm. Final EDC is 11/02/2025 based on today's ultrasound. Review of record shows blood type AB-positive. Related Data Home Medications ?Medication ?Instructions ?Recorded ?Confirmed docosahexaenoic acid 200 mg See Rx Instructions PO .CO MPLEX 05/30/23 03/19/25 capsule ( DHA) Previous Rx's ?Medication ?Instructions ?Recorded albuterol sulfate 90 mcg/actuation 2 inh inhalation Q4 H PRN shortness 05/30/23 breath activated powder inhaler of breath or wheezing #1 ea sertraline 50 mg tablet 50 mg PO QDAY #90 tabs 03/19 Allergies Allergy/AdvReac Type Severity Reaction Status Date / Time No Known Drug Allergies Allergy Verified 03/19/25 13:59 Review of Systems 2 Status of ROS: Reports: 6 or more systems reviewed and unremarkable except as noted in History and below PFSH COUNTS INCLUDE 234 BEDS AT THE [facility] Medical History Anemia ?D64.9 - Anemia, unspecified (ICD-10) Gestational hypertension ?O13.9 - Gestational [-induced] hypertension without significant proteinuria, unspecified trimester (ICD-10) Surgical History No history of previous surgery Family History Father Depression Paternal Grandfather Depression Alzheimers disease Parkinson disease Mother Diabetes High blood pressure Maternal Grandfather Lung cancer Social History What is your current living situation?: I presently have a place to live Problems where you live: no known problems In the past 12 months, utilities in danger of being shut off: no In past 12 months, lack of transportation kept you from medical appts, meetings, work, or getting things needed for daily living: no In the past 12 mos, have been you worried that your food would run out before you had money to buy more?: never true In the past 12 mos, the food you bought just didn't last and you didn't have money to buy more?: never true Smoking Status: Never smoker How often does anyone, including family, friends and others, physically hurt you : never How often does anyone, including family, friends and others, insult or talk down to you: never How often does anyone, including family, friends and others, threaten you with harm: never How often does anyone, including family, friends and others, scream or curse at you: never Exam Narrative: Exam Narrative: Accompanied by and baby boy. Pleasant. NAD. Has been tearful. Breathing easily. Heart in regular rate and rhythm. Abdomen is soft with some discomfort in the suprapubic area. Well-perfused peripherally without edema. Const: Vital Signs, click to edit/add: Vital Signs - 24 hr 03/24/25 20:04 03/24/25 21:04 03/24/25 21:05 Temperature 97.2 F L Pulse Rate 81 81 Pulse Rate [Left P ulse Oximeter] 86 Respiratory Rate 18 Blood Pressure 125/81 Blood Pressure [Ri ght Upper Arm] 145/81 H Pulse Oximetry 99 96 97 Oxygen Delivery Me thod Room Air 03/24/25 21:15 03/24/25 21:30 03/24/25 21:31 Temperature Pulse Rate 67 70 73 Pulse Rate [Left P ulse Oximeter] Respiratory Rate Blood Pressure 127/76 Blood Pressure [Ri ght Upper Arm] Pulse Oximetry 97 97 98 Oxygen Delivery Me thod 03/24/25 21:32 Temperature Pulse Rate 71 Pulse Rate [Left P ulse Oximeter] Respiratory Rate Blood Pressure Blood Pressure [Ri ght Upper Arm] Pulse Oximetry 98 Oxygen Delivery Me thod Documenting provider has reviewed patient's vital signs: yes Course Vital Signs Vital signs: Initial Vital Signs Temperature 97.2 F L 03/24/25 20:04 Temperature Source Temporal Artery Scan 03/24/25 20:04 Pulse Rate 86 03/24/25 20:04 Pulse Rhythm Regular 03/24/25 20:04 Respiratory Rate 18 03/24/25 20:04 Blood Pressure 145/81 H 03/24/25 20:04 Blood Pressure Mean 102 03/24/25 20:04 Blood Pressure Position Sitting 03/24/25 20:04 Pulse Oximetry 99 03/24/25 20:04 Oxygen Delivery Method Room Air 03/24/25 20:04 Vital Signs Temperature 97.2 F L 03/24/25 20:04 Pulse Rate 86 03/24/25 20:04 Respiratory Rate 18 03/24/25 20:04 Blood Pressure 145/81 H 03/24/25 20:04 Pulse Oximetry 99 03/24/25 20:04 Oxygen Delivery Method Room Air 03/24/25 20:04 Temperature 97.2 F L 03/24/25 20:04 Pulse Rate 71 03/24/25 21:32 Respiratory Rate 18 03/24/25 20:04 Blood Pressure 127/76 03/24/25 21:31 Pulse Oximetry 98 03/24/25 21:32 Oxygen Delivery Method Room Air 03/24/25 20:04 Medical Decision Making MDM Narrative Medical decision making narrative: Bleeding in early with initial ultrasound showing smaller than anticipated dates. There was a subchorionic hemorrhage that time. She may have continued to resolve this or may be bleeding further. She might also be miscarrying. Have a verified IUP without ectopic. Does not have symptoms otherwise for urinary tract infection. Will need to repeat ultrasound. Pending this result and increasing bleeding may check hemoglobin and HCT. Did discuss findings of ultrasound with search engineer. Concerning for loss as without cardiac activity and fallen 2 weeks behind anticipated date. See formal over-read below INDICATION: Bleeding. TECHNIQUE: Ultrasound OB pelvis transvaginal for better assessment or to better visualize the ovaries. Real-time gutierrez-scale imaging of the pelvis was performed. COMPARISON: 03/19/2025. FINDINGS: There is a single intrauterine gestation. No cardiac activity identified. The embryo`s crown rump length measurement of 1.3 cm corresponds to a gestational age of 7 weeks 3 days. Partially visualized previously seen subchorionic hemorrhage. The ovaries are of normal size. There are no suspicious fluid collections noted in the cul-de-sac. IMPRESSION: Single intrauterine with no cardiac activity identified, concerning for early loss. Dictated by Kvng Anderson MD @ 03/24/2025 10:38:56 PM Does appear to be an incomplete spontaneous miscarriage at this point. Discussed these findings with Tamika and her . She was very tearful and began to sob. Discussed findings with OB on-call. Will be following closely in clinic. Anticipate them reaching out to discuss options. See patient discharge plan for further discussion I am sorry this is happening to you both. Stay well-hydrated. Expect a call from [facility] to schedule follow-up in clinic to discuss options at this point. Anticipate further bleeding and cramping. Be seen for uncontrolled pain, bleeding such that you are soaking through one overnight pad an hour for 2 consecutive hours, fever, repeated vomiting. Medical Records Medical records reviewed: Yes I reviewed the patient's medical records Discharge Plan Discharge Clinical Impression: Incomplete miscarriage Patient Disposition: Home w/ Parent or Adult Condition: Stable Additional Instructions: I am sorry this is happening to you both. Stay well-hydrated. Expect a call from [facility] to schedule follow-up in clinic to discuss options at this point. Anticipate further bleeding and cramping. Be seen for uncontrolled pain, bleeding such that you are soaking through one overnight pad an hour for 2 consecutive hours, fever, repeated vomiting. Prescriptions: No Action DHA 200 mg capsule See Rx Instructions PO .COMPLEX Rx Instructions: 1 cap orally; daily albuterol sulfate 90 mcg/actuation aerosol powdr breath activated 2 inh inhalation Q4H PRN (Reason: shortness of breath or wheezing) Qty: 1 2RF sertraline 50 mg tablet 50 mg PO QDAY Qty: 90 2RF Rx Instructions: 25 mg daily for the 1st week, then 50 mg daily thereafter Follow Up/Referrals: Provider,Not a Local [Non-Staff, Family Practice] Stand Alone Forms: [email or web address] Info Instructions
--- NOTE | 2025-03-24 20:42 | CRLHL7_ITS ---
For Patients: As a result of the Century Cures Act, medical imaging exams and procedure reports are released immediately into your electronic medical record. You may view this report before your referring provider. If you have questions, please contact your health care provider. INDICATION: Bleeding. TECHNIQUE: Ultrasound OB pelvis transvaginal for better assessment or to better visualize the ovaries. Real-time gutierrez-scale imaging of the pelvis was performed. COMPARISON: 03/19/2025. FINDINGS: There is a single intrauterine gestation. No cardiac activity identified. The embryo`s crown rump length measurement of 1.3 cm corresponds to a gestational age of 7 weeks 3 days. Partially visualized previously seen subchorionic hemorrhage. The ovaries are of normal size. There are no suspicious fluid collections noted in the cul-de-sac. IMPRESSION: Single intrauterine with no cardiac activity identified, concerning for early loss. Dictated by Kvng Anderson MD @ 03/24/2025 10:38:56 PM (Electronically Signed)
== END 2025-03-24 22:43 | disposition home or self-care (01) ==
PROVIDERS: Emergency Provider Family Medicine; PCP Registered Nurse
DX: O03.4 Incomplete spontaneous abortion without complication (principal); Z3A.09 9 weeks gestation of pregnancy
CPT/HCPCS: 76817; 99284